=== PATIENT | female | born 1970 | race Caucasian/White ===

== ENCOUNTER → 2017-06-04 | Outpatient (CLI) | payer MEDICAID ==
[~2017-06-04] MED LIST: AMITRIPTYLINE 225 MG PO; BACLOFEN10 MG PO; BACTROBAN2% TP; DETROL LA 2 MG C2 MG PO; GABAPENTIN300 MG PO; KEFLEX 500MG.500 MG PO; MINOCYCLINE 10100 MG PO; OXYBUTYNIN5 MG PO; PANTOPRAZOLE SO40 MG PO; PAXIL20 MG PO; PERCOCET 325 MG1 TA4 PO; PRILOSEC20 M1 PO; ROPINIROLE 0.0.25 MG PO
[2017-06-04 18:45] LABS: AMPHETAMINES/METAMPHETAMINES NEGATIVE ng/mL (<1000)
== END ==
LOC: LAB 16:23
PROVIDERS: Nurse Practitioner Family
DX: Z79.899 Other long term (current) drug therapy (principal)

== ENCOUNTER → 2017-06-18 | Outpatient (CLI) | payer MEDICAID | LOC: RAD 06-16 16:00 | DX: Z12.31 Encounter for screening mammogram for malignant neoplasm of breast (principal) | CPT/HCPCS: G0202 ==